=== PATIENT | male | born 2000 | race African-American/Black ===

== ENCOUNTER 2022-12-06 15:02 | Emergency (ER) | payer MEDICAID, OTHER ==
[~2022-12-06] VITALS: Ht 177.8 cm; Wt 72.7 kg
[2022-12-06 16:11] LABS: BASOPHILS % 0.4 % (0.0-2.0); EOSINOPHILS % 4.3 % (0.0-5.0); HEMATOCRIT. 41.4 % (42.0-52.0); HEMOGLOBIN. 13.8 g/dL (14.0-18.0); LYMPHOCYTES % 18.6 % (20.0-50.0); MEAN CORPUSCULAR HEMOGLOBIN 31.2 pg (28.0-32.0); MEAN CORPUSCULAR VOLUME 93.3 fL (80.0-94.0); MEAN PLATELET VOLUME 9.4 fl (7.4-10.4); MONOCYTES % 8.1 % (2.0-8.0); NEUTROPHILS % 68.6 % (40.0-76.0); PLATELET 171 x1000/uL (130-400); RED BLOOD CELL COUNT 4.44 mill/uL (4.7-6.1); RED CELL DISTRIBUTION WIDTH 15.2 % (11.6-14.6)
[2022-12-06 16:14] LABS: CHLORIDE 106 mEq/L (98-107)
[2022-12-06 16:15] LABS: PROTHROMBIN TIME 10.6 sec (9.6-11.0)
[2022-12-06 16:25] LABS: ETHANOL BLOOD < 10 mg/dL
[2022-12-06 16:42] LABS: *AMPHETAMINES SCREEN URINE NEGATIVE (NEGATIVE); *BARBITURATES SCREEN URINE NEGATIVE (NEGATIVE); *BENZODIAZEPINES SCREEN URINE NEGATIVE (NEGATIVE); *COCAINE SCREEN URINE NEGATIVE (NEGATIVE); CANNABINOID URINE SCREEN PRESUMTIVE POSITIVE (NEGATIVE); METHADONE URINE SCREEN NEGATIVE (NEGATIVE); OPIATES URINE SCREEN NEGATIVE (NEGATIVE); PHENCYCLIDINE URINE SCREEN NEGATIVE (NEGATIVE)
[2022-12-06 17:45] VITALS: BP 115/71
[2022-12-06] MEDS ORDERED: AMOX1TAB16 MT (20:33)
== END 2022-12-06 21:43 | disposition home or self-care (01) ==
LOC: ER 15:02
DX: J32.9 Chronic sinusitis, unspecified (principal); R55 Syncope and collapse; R51.9 Headache, unspecified; J45.909 Unspecified asthma, uncomplicated; Z79.899 Other long term (current) drug therapy
CPT/HCPCS: 36415; 71045; 80053; 80305; 80320; 82140; 82962; 83605; 84484; 85025; 93005; 99285; G0480